=== PATIENT | male | born 1975 | race Caucasian/White ===

== ENCOUNTER 2020-07-08 07:34 | Emergency (ER) | payer OTHER ==
[~2020-07-08] VITALS: Ht 182.9 cm; Wt 102.5 kg
[2020-07-08] MEDS ORDERED: NOHOMEMEDICATIONS (07:51)
[2020-07-08 08:15] LABS: ABSOLUTE NEUTROPHILS 4.4 thou/uL (1.4-8.2); BASOPHILS 0.7 % (0.0-2.0); HEMATOCRIT 47.4 % (42.0-52.0); HEMOGLOBIN 16.4 gm/dL (14.0-18.0); LYMPHOCYTES 15.2 % (24.0-44.0); MCH 31.6 pg (26.0-34.0); MCHC 34.5 g/dL (28.0-37.0); MCV 91.4 fL (80.0-100.0); PLATELET COUNT 132 thou/uL (150-400); POLYS 79.1 % (36.0-66.0); RBC 5.19 mil/uL (4.50-6.00); RDW 12.6 % (10.5-14.5); WBC 5.6 thou/uL (4.0-11.0)
--- NOTE | 2020-07-08 08:19 | EKG ---
[facility] [address] ELECTROCARDIOGRAM REPORT Name: MARCELO HAGAN Room #: [facility].#: [id number] Admission: Attend Phys: Discharge: Date of : 79 Report #: [id number] THIS REPORT FOR: cc: YVONNE BERTRAND,Damian Pinedo MD ~ THIS REPORT FOR: //name// [facility] ED Test Date: 2020-07-08 Test Time: 08:11:30 Pat Name: MARCELO HAGAN Department: Room: Gender: M [employer] Advisor: MARY DUGLASDANI : 1975 Requested By: Himanshu Andre Order Number: [id number] MD: Damian Henson Measurements Intervals [place] Rate: 103 P: 52 CT: 146 QRS: 5 QRSD: 94 T: 14 QT: 322 QTc: 422 Interpretive Statements Sinus tachycardia Probable anteroseptal infarct, old No previous ECG available for comparison Electronically Signed On 07-08-2020 8:19:38 CDT by Damian Henson [email or web address] <ELECTRONICALLY SIGNED> By: Damian Henson MD 07/08/20818 0 08 MD GARRETT Giron
[2020-07-08 08:23] LABS: ANION GAP 9 mmol/L (7-16); BUN 13 mg/dL (7-18); CALCIUM 8.6 mg/dL (8.5-10.1); CHLORIDE 101 mmol/L (98-107); CO2 27 mmol/L (21-32); CREATININE 1.2 mg/dL (0.7-1.3); GLUCOSE 124 mg/dL (74-106); POTASSIUM 3.7 mmol/L (3.5-5.1); SODIUM 137 mmol/L (136-145)
[2020-07-08 08:32] LABS: TROPONIN-I <0.06 ng/mL (<0.06)
[2020-07-08] MEDS ORDERED: ZPAK PO (09:31)
[2020-07-08] MEDS ORDERED: ZOFRAN ODT4 MG PO (09:31)
[2020-07-08 09:45] VITALS: BP 121/77
== END 2020-07-08 09:45 | disposition home or self-care (01) ==
LOC: ER 07:34
PROVIDERS: Emergency Medicine
DX: U07.1 COVID-19 (principal); J18.9 Pneumonia, unspecified organism; R11.0 Nausea; I48.91 Unspecified atrial fibrillation

== ENCOUNTER → 2020-09-09 | Outpatient (CLI) | payer OTHER ==
[~2020-09-09] MED LIST: NOHOMEMEDICATIONS; ZOFRAN ODT4 MG PO; ZPAK PO
== END ==
LOC: SJCVCIMAG 07:50
PROVIDERS: ATTEND Internal Medicine Cardiovascular Disease
DX: I07.1 Rheumatic tricuspid insufficiency (principal); I48.91 Unspecified atrial fibrillation